=== PATIENT | male | born 1940 | race Caucasian/White ===

== ENCOUNTER 2025-01-20 12:47 | Day surgery (SDC) | payer OTHER ==
[~2025-01-20] VITALS: Ht 177.8 cm; Wt 79.7 kg
[~2025-01-20 12:47] MED LIST: Balanced Salt Epinephrine Irrigation Solution 500 mL IR SCH; Moxifloxacin HCL 0.5 MG/0.1 ML 0.4MLSYR RIGHTEYE SCH; Ondansetron 4 MG SoluTab MM PRN; PHENYLEPHRINE\\TROPICAMIDE\\TETRACAINE OPHTHALMIC DILATING SOLN RIGHTEYE PRN; Povidone-Iodine 450 DROP/30 ML Solution ONE; Povidone-Iodine 450 DROP/30 ML Solution RIGHTEYE SCH; Tetracaine HCl/Pf 0.5% Opth Soln 4 ml ONE; diazePAM 5 MG,diazePAM 2 MG PO SCH
--- NOTE | 2025-01-20 13:08 | NUR ---
01/20/25 1308 Gale Szymanski PT REPORTS ANXIETY LEVEL WAS 5/10 PRIOR TO ADMINISTRATION OF VALIUM 7MG PO @ 1306. CONTINUOUS SPO2 AND HR MONITORING IN PLACE.
[2025-01-20] MEDS ORDERED: MAG6464 MG PO (13:09)
[2025-01-20] MEDS ORDERED: MEMA10 PO (13:09)
[2025-01-20] MEDS ORDERED: ELIQUIS5 M2 PO (13:17)
[2025-01-20] MEDS ORDERED: ATOR10 PO (13:18)
[2025-01-20] MEDS ORDERED: ALGAL OMEGA-3200 MG PO (13:18)
[2025-01-20] MEDS ORDERED: FERSU300 PO (13:18)
[2025-01-20] MEDS ORDERED: THERA-D2000 UNIT PO (13:18)
[2025-01-20] MEDS ORDERED: TAMS.4ER PO (13:19)
[2025-01-20] MEDS ORDERED: MAGCHL64ER (13:19)
--- NOTE | 2025-01-20 13:52 | NUR ---
01/20/25 1352 Mariah Valiente 1349 BP 149/80, HR 66, O2 AT 97% RESP 16
[2025-01-20 14:43] VITALS: BP 148/81
== END 2025-01-20 14:39 | disposition home or self-care (01) ==
LOC: ORSCSDS 12:47
PROVIDERS: Student in an Organized Health Care Education/Training Program
PROC: 08RJ3JZ Replacement of Right Lens with Synthetic Substitute, Percutaneous Approach (ICD-10-PCS; principal; 2025-01-20 14:00)
DX: E11.36 Type 2 diabetes mellitus with diabetic cataract (principal); H25.813 Combined forms of age-related cataract, bilateral; H52.221 Regular astigmatism, right eye; H21.81 Floppy iris syndrome; I48.91 Unspecified atrial fibrillation; Z87.891 Personal history of nicotine dependence; I10 Essential (primary) hypertension; H35.30 Unspecified macular degeneration; Z79.899 Other long term (current) drug therapy
CPT/HCPCS: A9270; V2632

== ENCOUNTER 2025-01-27 07:05 | Day surgery (SDC) | payer OTHER ==
[~2025-01-27] VITALS: Ht 177.8 cm; Wt 78.7 kg
[~2025-01-27 07:05] MED LIST changes: +ALGAL OMEGA-3200 MG PO; +ATOR10 PO; -Balanced Salt Epinephrine Irrigation Solution 500 mL IR SCH; +ELIQUIS5 M2 PO; +FERSU300 PO; +MAG6464 MG PO; +MAGCHL64ER; +MEMA10 PO; -Moxifloxacin HCL 0.5 MG/0.1 ML 0.4MLSYR RIGHTEYE SCH; -Ondansetron 4 MG SoluTab MM PRN; -PHENYLEPHRINE\\TROPICAMIDE\\TETRACAINE OPHTHALMIC DILATING SOLN RIGHTEYE PRN; -Povidone-Iodine 450 DROP/30 ML Solution RIGHTEYE SCH; +TAMS.4ER PO; +THERA-D2000 UNIT PO; -diazePAM 5 MG,diazePAM 2 MG PO SCH
[2025-01-27] MEDS ORDERED: METO50ER PO (07:39)
[2025-01-27] MEDS ORDERED: Ondansetron 4 MG SoluTab MM PRN ×2 (07:50→07:55)
[2025-01-27] MEDS ORDERED: Moxifloxacin HCL 0.5 MG/0.1 ML 0.4MLSYR LEFTEYE SCH (07:55)
[2025-01-27] MEDS ORDERED: diazePAM 5 MG,diazePAM 2 MG PO SCH (07:55)
[2025-01-27] MEDS ORDERED: PHENYLEPHRINE\\TROPICAMIDE\\TETRACAINE OPHTHALMIC DILATING SOLN LEFTEYE PRN (07:55)
[2025-01-27] MEDS ORDERED: Balanced Salt Epinephrine Irrigation Solution 500 mL IR SCH (07:55)
[2025-01-27] MEDS ORDERED: Povidone-Iodine 450 DROP/30 ML Solution LEFTEYE SCH (07:55)
--- NOTE | 2025-01-27 08:32 | NUR ---
01/27/25 0832 Mago Guzmán HR: 64 BP: 149/79 SPO2: 99% ON BLOW BY O2
[2025-01-27 09:11] VITALS: BP 126/84
[2025-01-28] MEDS ORDERED: diazePAM 5 MG,diazePAM 2 MG PO SCH (06:00)
[2025-01-28] MEDS ORDERED: Moxifloxacin HCL 0.5 MG/0.1 ML 0.4MLSYR LEFTEYE SCH (06:00)
[2025-01-28] MEDS ORDERED: PHENYLEPHRINE\\TROPICAMIDE\\TETRACAINE OPHTHALMIC DILATING SOLN LEFTEYE PRN (06:00)
[2025-01-28] MEDS ORDERED: Balanced Salt Epinephrine Irrigation Solution 500 mL IR SCH (06:00)
[2025-01-28] MEDS ORDERED: Povidone-Iodine 450 DROP/30 ML Solution LEFTEYE SCH (06:00)
== END 2025-01-27 09:11 | disposition home or self-care (01) ==
LOC: ORSCSDS 07:05
PROVIDERS: Student in an Organized Health Care Education/Training Program
PROC: 08RK3JZ Replacement of Left Lens with Synthetic Substitute, Percutaneous Approach (ICD-10-PCS; principal; 2025-01-27 08:30)
DX: E11.36 Type 2 diabetes mellitus with diabetic cataract (principal); Z96.1 Presence of intraocular lens; H25.812 Combined forms of age-related cataract, left eye; H52.202 Unspecified astigmatism, left eye; H21.81 Floppy iris syndrome; I48.91 Unspecified atrial fibrillation; Z87.891 Personal history of nicotine dependence; H35.30 Unspecified macular degeneration; I10 Essential (primary) hypertension; Z79.01 Long term (current) use of anticoagulants; Z79.899 Other long term (current) drug therapy
CPT/HCPCS: A9270; V2632